=== PATIENT | female | born 1980 | race Two or more races ===

== ENCOUNTER → 2017-10-02 16:02 | Outpatient (CLI) | payer OTHER ==
[~2017-10-02 16:02] MED LIST: OSEL75CA PO; PEPCID20 MG; PHENERGAN25 MG
== END | disposition home or self-care (01) ==
LOC: LAB 16:02
DX: Z34.80 Encounter for supervision of other normal pregnancy, unspecified trimester (principal); A92.8 Other specified mosquito-borne viral fevers

== ENCOUNTER 2017-11-10 15:13 | Outpatient (CLI) | payer OTHER | END 2017-11-10 15:22 | disposition home or self-care (01) | LOC: SONOGRAMA 15:13 | DX: Z34.80 Encounter for supervision of other normal pregnancy, unspecified trimester (principal) ==

== ENCOUNTER 2017-12-19 15:52 | Outpatient (CLI) | payer OTHER ==
[2017-12-19] MEDS ORDERED: COLACE100 MG PO (17:19)
[2017-12-19] MEDS ORDERED: PRENATAL FORMU1 EAC1 PO (21:25)
[2017-12-19] MEDS ORDERED: ZANTAC 7575 MG PO (21:26)
== END 2017-12-19 20:50 | disposition home or self-care (01) ==
LOC: OBS/DEL 15:52 → LDR 15:52 → OBS/DEL 20:50
DX: O26.893 Other specified pregnancy related conditions, third trimester (principal); R10.2 Pelvic and perineal pain; K59.09 Other constipation; Z34.83 Encounter for supervision of other normal pregnancy, third trimester

== ENCOUNTER 2018-01-04 07:27 | Outpatient (CLI) | payer OTHER ==
[~2018-01-04 07:27] MED LIST changes: +COLACE100 MG PO; +FLONASE ALLERG9.9 ML NASAL; +MUCINEX DM ER1 EAC1 PO; +ONDANSETRON HCL4 MG PO; +PRENATAL FORMU1 EAC1 PO; +VENTOLIN HFA18 GM IH; +ZANTAC 7575 MG PO
== END 2018-01-04 07:34 | disposition home or self-care (01) ==
LOC: LAB 07:27
DX: Z34.80 Encounter for supervision of other normal pregnancy, unspecified trimester (principal)

== ENCOUNTER 2018-02-01 15:24 | Outpatient (CLI) | payer OTHER | END 2018-02-01 16:14 | disposition home or self-care (01) | LOC: LAB 15:24 | DX: Z34.80 Encounter for supervision of other normal pregnancy, unspecified trimester (principal) ==

== ENCOUNTER 2018-02-21 10:45 | Inpatient (IN) | payer OTHER ==
[~2018-02-21] VITALS: Ht 165.1 cm; Wt 67.1 kg
== END 2018-02-23 15:10 | disposition home or self-care (01) | DRG 767 ==
LOC: OB/GYN 10:45 → LDR 10:45 → OB/GYN 16:14 → LDR 03-06 15:31
PROC: 10E0XZZ Delivery of Products of Conception, External Approach (ICD-10-PCS; principal; 2018-02-21)
PROC: 0DQR0ZZ Repair Anal Sphincter, Open Approach (ICD-10-PCS; 2018-02-21)
PROC: 0UQMXZZ Repair Vulva, External Approach (ICD-10-PCS; 2018-02-21)
PROC: 10907ZC Drainage of Amniotic Fluid, Therapeutic from Products of Conception, Via Natural or Artificial Opening (ICD-10-PCS; 2018-02-21)
PROC: 3E033VJ Introduction of Other Hormone into Peripheral Vein, Percutaneous Approach (ICD-10-PCS; 2018-02-21)
PROC: 4A1HXCZ Monitoring of Products of Conception, Cardiac Rate, External Approach (ICD-10-PCS; 2018-02-21)
PROC: 0UL70ZZ Occlusion of Bilateral Fallopian Tubes, Open Approach (ICD-10-PCS; 2018-02-22)
DX: O70.21 Third degree perineal laceration during delivery, IIIa (principal); Z37.0 Single live birth; O71.82 Other specified trauma to perineum and vulva; Z3A.38 38 weeks gestation of pregnancy; Z30.2 Encounter for sterilization; O09.523 Supervision of elderly multigravida, third trimester

== ENCOUNTER 2019-07-29 16:25 | Outpatient (CLI) | payer OTHER | END 2019-07-29 17:24 | disposition home or self-care (01) | LOC: LAB 16:25 | DX: Z28.3 Underimmunization status (principal) ==